=== PATIENT | male | born 1985 | race African-American/Black ===

== ENCOUNTER 2017-06-12 17:18 | Emergency (ER) | payer OTHER ==
[2017-06-12] MEDS ORDERED: Ketorolac Tromethamine 30 MG/ML VIAL ONE (17:35)
[2017-06-12] MEDS ORDERED: Metoclopramide HCl 10 MG/2 ML VIAL ONE (17:35)
[2017-06-12] MEDS ORDERED: diphenhydrAMINE 50 MG/ML VIAL ONE (17:35)
== END 2017-06-12 19:16 | disposition home or self-care (01) ==
LOC: ERS 17:18
DX: J11.1 Influenza due to unidentified influenza virus with other respiratory manifestations (principal); J45.909 Unspecified asthma, uncomplicated
CPT/HCPCS: 96365; 96375; J1200; J1885; J2765